=== PATIENT | male | born 1965 | race Caucasian/White ===

== ENCOUNTER 2016-09-14 01:32 | Emergency (ER) | payer BC, OTHER ==
[2016-09-14] MEDS ORDERED: PAXI40TA10 PO (01:39)
[2016-09-14] MEDS ORDERED: TETRACAINE 0.5% OPHTH SOLN 4ML OD ONE ×2 (04:15→04:45)
[2016-09-14] MEDS ORDERED: TOBRADEX OPHTH SUSP 2.5 ML OD ONE (04:45)
[2016-09-14 05:34] VITALS: BP 132/81
== END 2016-09-14 05:37 | disposition home or self-care (01) ==
LOC: M ED 02:33
DX: T15.01XA Foreign body in cornea, right eye, initial encounter (principal); X58.XXXA Exposure to other specified factors, initial encounter; Y93.H3 Activity, building and construction; Y92.89 Other specified places as the place of occurrence of the external cause; Y99.8 Other external cause status; F41.9 Anxiety disorder, unspecified; Z79.899 Other long term (current) drug therapy